=== PATIENT | female | born 1965 | race Caucasian/White ===

== ENCOUNTER 2021-03-06 00:03 | Inpatient (IN) | payer MEDICAID ==
[2021-03-06] VITALS (13 sets, daily range): BP systolic 112–145; BP diastolic 52–74
[~2021-03-06] VITALS: Ht 152.4 cm; Wt 74.8 kg
[2021-03-06 01:01] LABS: BASOPHILS % (AUTO) 0.3 % (0-1); EOSINOPHILS # (AUTO) 0.1 X10'3 (0-0.9); EOSINOPHILS % (AUTO) 0.6 % (0-6); HEMATOCRIT 39.5 % (35.0-45.0); HEMOGLOBIN 13.4 g/dl (12.0-16.0); LYMPHOCYTES # (AUTO) 0.9 X10'3 (1.1-4.8); MEAN CORPUSCULAR HEMOGLOBIN 30.2 PG (27.0-31.0); MEAN CORPUSCULAR HGB CONC 33.8 g/dL (33.0-36.5); MEAN CORPUSCULAR VOLUME 89.5 FL (78-98); MEAN PLATELET VOLUME 11.1 FL (7.4-10.4); MONOCYTES % (AUTO) 6.3 % (2-12); NEUTROPHILS # (AUTO) 13.2 X10'3 (1.8-7.7); NEUTROPHILS % (AUTO) 86.8 % (42-75); PLATELET COUNT 107 X10'3 (140-440); RED BLOOD COUNT 4.41 X10'6 (4.20-5.60); RED CELL DISTRIBUTION WIDTH 16.1 % (11.5-14.5); WHITE BLOOD COUNT 15.2 X10'3 (4.5-11.0)
[2021-03-06 01:05] LABS: ALANINE AMINOTRANSFERASE 91 U/L (12-78); ALBUMIN 2.6 G/DL (3.4-5.0); ALBUMIN/GLOBULIN RATIO 0.7 (1.1-1.5); ALKALINE PHOSPHATASE 118 IU/L (46-116); ANION GAP 8 (8-16); ASPARTATE AMINO TRANSFERASE 270 U/L (10-37); BILIRUBIN,TOTAL 0.5 MG/DL (0.1-1.0); BLOOD UREA NITROGEN 7 MG/DL (7-18); BUN/CREATININE RATIO 8.8 (6.6-38.0); CHLORIDE 101 MMOL/L (99-107); GLUCOSE 102 MG/DL (70-104); POTASSIUM 3.8 MMOL/L (3.5-5.1); SODIUM 137 MMOL/L (135-145); TOTAL PROTEIN 6.3 G/DL (6.4-8.2); eGFR 74 ML/MIN
[2021-03-06] MEDS ORDERED: ALBU2.5V10 PO (01:05)
[2021-03-06] MEDS ORDERED: GABA300C PO (01:05)
[2021-03-06] MEDS ORDERED: OXYC15TA PO (01:05)
[2021-03-06] MEDS ORDERED: LEVO112T5 PO (01:05)
[2021-03-06] MEDS ORDERED: CABO60TA PO (01:05)
[2021-03-06] MEDS ORDERED: ERGO1TAB30 PO (01:05)
[2021-03-06] MEDS ORDERED: FENT1PAT13 TOP (01:05)
[2021-03-06] MEDS ORDERED: LISI10TA27 PO (01:05)
[2021-03-06] MEDS ORDERED: INSU100I31 SQ (01:05)
[2021-03-06] MEDS ORDERED: SENN-263 PO (01:05)
[2021-03-06] MEDS ORDERED: UREA85CR23 TOP (01:05)
[2021-03-06] MEDS ORDERED: BUTA1TAB54 PO (01:05)
[2021-03-06] MEDS ORDERED: CIME800T PO (01:06)
[2021-03-06 01:11] LABS: MAGNESIUM 1.8 MG/DL (1.5-2.4)
[2021-03-06] MEDS ORDERED: nitroGLYCERIN 0.4mg SUBLingual tab SL PRN (01:15)
--- NOTE | 2021-03-06 01:16 | NUR ---
Pt port to r chest was accessed at [facility] and no working properly. Deaccessed and new one placed. Now flushing and drawning well. Lab calling to updated that the trop drawn here is over 90.0, critically high, and he is further running the sample to get the exact number. Dr. Bear updated. orderinig 2nd ekg and one nitro tab.
--- NOTE | 2021-03-06 01:35 | NUR ---
Critically high troponin 107.23, Dr. Barker aware.
--- NOTE | 2021-03-06 02:07 | NUR ---
Per Dr. Bear, Pt is agreeable to going to mill laborer and Dr. Santiago will take Pt to cath lab tech at 0630 this am and requests that Pt be prepped and ready to go at this time. silk screen frame assembler, Elsa , and Pt updated of this.
--- NOTE | 2021-03-06 02:28 | NUR ---
Dr. Morales at bedside for admission. Pt with stable vs .
[2021-03-06] MEDS ORDERED: potassium Cl 40MEQ/1/2NS 520ml 520 ML IV PRN ×2 (03:00)
[2021-03-06] MEDS ORDERED: potassium Cl 20 mEq SR tablet PO PRN ×2 (03:00)
[2021-03-06] MEDS ORDERED: ondansetron/PF 4mg/2ml inj IV PRN (03:00)
[2021-03-06] MEDS ORDERED: dextrose ORAL solution 15 GM/59 ML bottle PO PRN ×2 (03:10)
[2021-03-06] MEDS ORDERED: insulin Lispro (HumaLOG) vial - multi-dose SQ SCH (03:10)
[2021-03-06] MEDS ORDERED: glucagon, human recombinant 1mg kit SUBCUT PRN (03:10)
[2021-03-06] MEDS ORDERED: dextrose 50%-water 50ml dispensing syringe IV PRN ×2 (03:10)
[2021-03-06] MEDS ORDERED: MESSAGE TO PHARMACY PO ONE (03:10)
[2021-03-06] MEDS ORDERED: butalbital/acetaminophen/caffeine (Fioricet) tablet PO PRN (03:10)
[2021-03-06] MEDS: famotidine 20mg tablet PO SCH ×2 (03:20→20:55)
[2021-03-06] MEDS ORDERED: UREA TP PRN (03:25)
[2021-03-06] MEDS ORDERED: oxyCODONE IR 5mg (immed. release) tablet PO PRN (03:25)
[2021-03-06] MEDS: normal saline 1000ml 1,000 ML IV SCH ×2 (03:32→16:40)
[2021-03-06 03:34] LABS: HEMOGLOBIN A1C 6.4 % (4.5-6.2)
--- NOTE | 2021-03-06 04:05 | NUR ---
dr. maosn calling for update. pts last troponin is still pending, per quality control lab technician, Trent, will be around 100.0 again. Pt denies any current cp and is with stable vs and nsr on monitor. Dr. Mason request to call blood bank laboratory technician now and he will take her shortly to blood bank laboratory technician.
[2021-03-06 04:18] LABS: TROPONIN I 85.35 NG/ML (0.0-0.05)
[2021-03-06] MEDS ORDERED: verapamil 2.5 mg/ml inj IV ONE (04:28)
[2021-03-06] MEDS ORDERED: nitroGLYCERIN-Tridil 50MG/D5W 250 ML IV ONE (04:28)
[2021-03-06] MEDS ORDERED: LIDOcaine 1% (10mg/ml)w/preservative injection 20ml MDV ONE (04:29)
[2021-03-06] MEDS ORDERED: heparin 1,000unit/ml 10ml vial 10 ML ONE (04:29)
[2021-03-06] MEDS ORDERED: midazolam 1 mg/ML 2ml injection ONE (04:29)
[2021-03-06] MEDS ORDERED: iohexol 350MG/ML 100ml bottle IV ONE ×2 (04:29→05:13)
[2021-03-06] MEDS ORDERED: iohexol 350 MG/ML 50ML vial IV ONE (04:29)
[2021-03-06] MEDS ORDERED: fentaNYL/PF 50MCG/1 ML 2ML syringe ONE (04:29)
--- NOTE | 2021-03-06 04:29 | NUR ---
dr mason at bedside now.
--- NOTE | 2021-03-06 04:31 | NUR ---
dr. abreu updated that Pt to go to [facility] and trop now [address] Santiago at beside now.
--- NOTE | 2021-03-06 04:41 | NUR ---
to laborer plumbing
[2021-03-06] MEDS ORDERED: heparin 25,000 UNIT/250ml bag 250 ML IV ONE (05:28)
[2021-03-06 05:31] LABS: PARTIAL THROMBOPLASTIN TIME 74 SECONDS (22-32)
[2021-03-06] MEDS ORDERED: ticagrelor 90mg tablet ONE (06:23)
--- NOTE | 2021-03-06 06:35 | NUR ---
Received patient report from JOSELIN Carbajal. Awaiting patient arrival to room 3009.
--- NOTE | 2021-03-06 06:40 | NUR ---
Patient arrived to room 3009 via gurney. Patient used slideboard to get on hospital bed, and patient to lay flat for 6 hours. Right groin site CDI and no hematoma. Patient on heparin gtt and NS. Post-op vitals hooked up and vitals stable.
--- NOTE | 2021-03-06 07:21 | NUR ---
Orders for post-cath put in per Dr. Santiago and medications faxed down to pharmacy.
[2021-03-06] MEDS ORDERED: acetaminophen 325mg tablet PO PRN ×2 (07:30)
[2021-03-06 07:42] LABS: CHOL/HDL RATIO 3.5 (0.00-4.99); CHOLESTEROL 195 MG/DL (0-200); HDL CHOLESTEROL 55 MG/DL (35-60); LDL CHOLESTEROL 126 MG/DL (50-100); TRIGLYCERIDES 86 MG/DL (20-135)
[2021-03-06] MEDS: K and/or MAG REPLACEMENT MC SCH ×2 (08:00→20:00)
[2021-03-06] MEDS: lisinopril 10 MG tablet PO SCH (08:00)
[2021-03-06] MEDS ORDERED: lisinopril 10 MG tablet PO SCH (08:00)
[2021-03-06] MEDS: sodium bicarbonate (8.4%) inj. 75 MEQ in sodium chloride 0.45% 500ml 500 ML IV SCH ×3 (09:35→23:19)
[2021-03-06] MEDS: aspirin 81mg tab.chew PO SCH (09:37)
[2021-03-06] MEDS: sennosides 8.6mg tablet PO SCH ×2 (09:40→21:03)
[2021-03-06] MEDS: atorvastatin 20mg tablet PO SCH (09:41)
[2021-03-06] MEDS: levoTHYROXINE 112mcg tablet PO SCH (09:41)
[2021-03-06] MEDS: gabapentin 300mg capsule PO SCH (09:41)
[2021-03-06] MEDS: acetylcysteine 200 MG/ml 4ml vial PO SCH ×2 (09:42→20:00)
--- NOTE | 2021-03-06 11:37 | NUR ---
Order for heart healthy carb controlled diet entered per Dr. Santiago.
--- NOTE | 2021-03-06 17:55 | NUR ---
Orientee documentation: I have reviewed and agree with all interventions, assessments performed and documented by JOSELIN Vasquez.
--- NOTE | 2021-03-06 17:55 | NUR ---
[place] Medication Administration: For this medication-pass time frame, all medication were reviewed, dispensed, administered and documented per hospital policy by JOSELIN Vasquez.
--- NOTE | 2021-03-06 18:15 | NUR ---
Problems reprioritized. Patient report given, questions answered & plan of care reviewed with Jenn OLIVERA.
--- NOTE | 2021-03-06 18:15 | NUR ---
Problems reprioritized. Patient report given, questions answered & plan of care reviewed with JOSELIN Barajas. Patient stable at transfer of care.
--- NOTE | 2021-03-06 18:30 | NUR ---
Patient in room PCU 3009. I have received report from JOSELIN Maria and had the opportunity to ask questions and assume patient care.
[2021-03-07 02:00] VITALS: BP 113/63
[2021-03-07] MEDS: sodium bicarbonate (8.4%) inj. 75 MEQ in sodium chloride 0.45% 500ml 500 ML IV SCH (04:15)
[2021-03-07] MEDS: normal saline 1000ml 1,000 ML IV SCH (04:19)
--- NOTE | 2021-03-07 06:25 | NUR ---
Problems reprioritized. Patient report given, questions answered & plan of care reviewed with JOSELIN Patino.
[2021-03-07 07:00] VITALS: BP 121/59
[2021-03-07 07:50] LABS: BASOPHILS % (AUTO) 0.3 % (0-1); EOSINOPHILS # (AUTO) 0.2 X10'3 (0-0.9); HEMATOCRIT 36.1 % (35.0-45.0); HEMOGLOBIN 12.3 g/dl (12.0-16.0); LYMPHOCYTES # (AUTO) 0.7 X10'3 (1.1-4.8); LYMPHOCYTES % (AUTO) 7.1 % (21-51); MEAN CORPUSCULAR HEMOGLOBIN 30.3 PG (27.0-31.0); MEAN CORPUSCULAR HGB CONC 34.1 g/dL (33.0-36.5); MEAN CORPUSCULAR VOLUME 88.8 FL (78-98); MEAN PLATELET VOLUME 11.1 FL (7.4-10.4); MONOCYTES # (AUTO) 0.5 X10'3 (0-0.9); MONOCYTES % (AUTO) 5.3 % (2-12); NEUTROPHILS # (AUTO) 8.5 X10'3 (1.8-7.7); NEUTROPHILS % (AUTO) 85.3 % (42-75); PLATELET COUNT 108 X10'3 (140-440); RED BLOOD COUNT 4.07 X10'6 (4.20-5.60); RED CELL DISTRIBUTION WIDTH 15.8 % (11.5-14.5)
[2021-03-07] MEDS: K and/or MAG REPLACEMENT MC SCH (08:00)
[2021-03-07] MEDS ORDERED: ticagrelor 90mg tablet PO SCH (08:00)
[2021-03-07] MEDS ORDERED: metoprolol succinate 25mg (24-HOUR) SR. Tablet PO SCH (08:00)
[2021-03-07 08:12] LABS: ALANINE AMINOTRANSFERASE 94 U/L (12-78); ALBUMIN/GLOBULIN RATIO 0.6 (1.1-1.5); ALKALINE PHOSPHATASE 112 IU/L (46-116); ANION GAP 8 (8-16); ASPARTATE AMINO TRANSFERASE 133 U/L (10-37); BILIRUBIN,TOTAL 0.5 MG/DL (0.1-1.0); BLOOD UREA NITROGEN 8 MG/DL (7-18); BUN/CREATININE RATIO 11.1 (6.6-38.0); CALCIUM 7.6 MG/DL (8.5-10.1); CHLORIDE 106 MMOL/L (99-107); CHOL/HDL RATIO 4.4 (0.00-4.99); CHOLESTEROL 150 MG/DL (0-200); CREATININE 0.72 MG/DL (0.40-0.90); GLUCOSE 79 MG/DL (70-104); HDL CHOLESTEROL 34 MG/DL (35-60); LDL CHOLESTEROL 92 MG/DL (50-100); POTASSIUM 3.8 MMOL/L (3.5-5.1); SODIUM 141 MMOL/L (135-145); TOTAL PROTEIN 5.1 G/DL (6.4-8.2); TRIGLYCERIDES 120 MG/DL (20-135); eGFR 83 ML/MIN
[2021-03-07] MEDS: sennosides 8.6mg tablet PO SCH (08:50)
[2021-03-07] MEDS: gabapentin 300mg capsule PO SCH (08:50)
[2021-03-07] MEDS: aspirin 81mg tab.chew PO SCH (08:50)
[2021-03-07] MEDS: atorvastatin 20mg tablet PO SCH (08:51)
[2021-03-07 08:52] VITALS: BP_SYST 121
[2021-03-07] MEDS: acetylcysteine 200 MG/ml 4ml vial PO SCH (08:52)
[2021-03-07] MEDS: lisinopril 10 MG tablet PO SCH (08:52)
[2021-03-07] MEDS: levoTHYROXINE 112mcg tablet PO SCH (08:52)
[2021-03-07] MEDS ORDERED: fentaNYL 100MCG/hour patch.TD72 TD SCH (09:00)
--- NOTE | 2021-03-07 09:06 | NUR ---
Paged Cardiology COCKTAIL SERVER Vandana Brown: Per Dr Llamas, pt may d/c if you clear her. PT would like to leave [facility] (97 if possible) as she must drive to [place]. Dr. Llamas will need you to put in the cardiac meds for d/c. Thank you!
[2021-03-07] MEDS ORDERED: ATOR20TA66 PO (09:23)
[2021-03-07] MEDS ORDERED: TICA90TA PO (09:23)
[2021-03-07] MEDS ORDERED: NITR0.4T51 SL (09:23)
[2021-03-07] MEDS ORDERED: METO-395 PO (09:23)
[2021-03-07] MEDS ORDERED: ASPI81TA53 PO (09:23)
[2021-03-07 09:31] LABS: LARGE PLATELETS FEW; PLATELET ESTIMATE DECREASED
[2021-03-07 09:32] LABS: ANISOCYTOSIS 1+
--- NOTE | 2021-03-07 11:27 | NUR ---
Patient stable for discharge per MD orders. All belongings collected and sent with patient. PIV discontinue intact, residential monitor removed and returned to telemetry office. All instructions reviewed with patient, who was given the opportunity to ask questions. All questions answered, patient expressed understanding of instructions. Patient assisted into wheelchair and wheeled to front of building, where she and her belongings were deposited into a private vehicle. Patient departed with driving.
[2021-03-08] MEDS ORDERED: albuterol 2.5 MG/3 ML nebule ONE (14:16)
== END 2021-03-07 10:37 | disposition home or self-care (01) | DRG 174 ==
LOC: ER 00:05 → ED HOLD 03:00 → PCU 3S 06:50
PROVIDERS: ADMIT Internal Medicine; ATTEND Internal Medicine
PROC: 4A023N7 Measurement of Cardiac Sampling and Pressure, Left Heart, Percutaneous Approach (ICD-10-PCS; principal; 2021-03-06)
PROC: 027135Z Dilation of Coronary Artery, Two Arteries with Two Drug-eluting Intraluminal Devices, Percutaneous Approach (ICD-10-PCS; 2021-03-06)
PROC: B2111ZZ Fluoroscopy of Multiple Coronary Arteries using Low Osmolar Contrast (ICD-10-PCS; 2021-03-06)
PROC: B2151ZZ Fluoroscopy of Left Heart using Low Osmolar Contrast (ICD-10-PCS; 2021-03-06)
PROC: B54BZZA Ultrasonography of Right Lower Extremity Veins, Guidance (ICD-10-PCS; 2021-03-06)
DX: I21.4 Non-ST elevation (NSTEMI) myocardial infarction (principal); D69.3 Immune thrombocytopenic purpura; C79.51 Secondary malignant neoplasm of bone; C64.9 Malignant neoplasm of unspecified kidney, except renal pelvis; E11.9 Type 2 diabetes mellitus without complications; E03.9 Hypothyroidism, unspecified; E78.5 Hyperlipidemia, unspecified; F17.210 Nicotine dependence, cigarettes, uncomplicated; G89.29 Other chronic pain; I10 Essential (primary) hypertension; I25.10 Atherosclerotic heart disease of native coronary artery without angina pectoris; J44.9 Chronic obstructive pulmonary disease, unspecified; Z79.899 Other long term (current) drug therapy; Z80.0 Family history of malignant neoplasm of digestive organs; Z82.49 Family history of ischemic heart disease and other diseases of the circulatory system; Z85.528 Personal history of other malignant neoplasm of kidney; Z86.2 Personal history of diseases of the blood and blood-forming organs and certain disorders involving the immune mechanism; Z90.5 Acquired absence of kidney; Z92.21 Personal history of antineoplastic chemotherapy; Z98.61 Coronary angioplasty status
CPT/HCPCS: 36415; 76937; 80053; 80061; 82948; 83036; 83735; 83880; 84484; 85008; 85025; 85347; 85610; 85730; 87081; 93005; 93306; 93458; 96374; 99152; 99153; 99285; A4314; A5120; C1725; C1751; C1760; C1769; C1874; C1892; C1894; C9600; C9601; G0378; J1644; J1815; J2001; J2250; J3010; J3490; J7030; Q9967

== ENCOUNTER 2021-03-08 11:40 | Inpatient (IN) | payer MEDICAID ==
[~2021-03-08] VITALS: Ht 154.9 cm; Wt 81.8 kg
[~2021-03-08 11:40] MED LIST: ALBU2.5V10 PO; ASPI81TA53 PO; ATOR20TA66 PO; BUTA1TAB54 PO; CABO60TA PO; CIME800T PO; ERGO1TAB30 PO; FENT1PAT13 TOP; GABA300C PO; INSU100I31 SQ; LEVO112T5 PO; LISI10TA27 PO; METO-395 PO; NITR0.4T51 SL; NORepinephrine 1 mg/ml inj IV ONE; OXYC15TA PO; SENN-263 PO; TICA90TA PO; UREA85CR23 TOP; etomidate 2mg/ml inj. ONE; heparin 10,000 units/1 ML INJ ONE; heparin, porcine-25,000 units/D5-250ml premix IV ONE; rocuronium 10mg/ml inj IV ONE; sod chloride 0.9% 10ml flush syringe IV ONE
--- NOTE | 2021-03-08 11:55 | NUR ---
Fentanyl patch removed from right shoulder.
[2021-03-08 12:14] LABS: ABG BASE EXCESS -18.7 mmol/L (-2.0-2.0); ABG OXYGEN SATURATION 79.6 % (94-97); ABG PCO2 (T) 63.6 mmHg (32.0-45.0); ABG PO2 (T) 63.9 mmHg (75.0-100.0); ALLEN'S TEST POSITIVE; FCOHb 2.9 % (0.0-3.9); FMetHb 0.1 % (0.0-1.5); FO2Hb 77.2 % (94-97); PEEP 8 cm H2O; RESPIRATORY RATE 20 b/min; TIDAL VOLUME 400 mL; TOTAL HEMOGLOBIN 15.2 G/dl (12.0-16.0)
[2021-03-08] MEDS ORDERED: FENTANYL-0.9 % NACL/PF 100 ML IV PRN (12:15)
[2021-03-08] MEDS ORDERED: midazolam 100mg in NS 100ml 100 ML IV PRN (12:15)
--- NOTE | 2021-03-08 12:15 | NUR ---
Updated significant other Johnathan on current plan of care and treatment. Dr. Matson in room as well to give needed updates and current information. Johnathan aware that patient was intubated and regarding all procedures performed including tubes and lines placed. Johnathan did state that patient has a port over the right chest wall, that is accessible and has been accessed recently for chemotherapy. Verified current history on patient and history is consistent with medical history from 2 days ago.
[2021-03-08 12:27] LABS: EOSINOPHILS # (AUTO) 0.2 X10'3 (0-0.9); RED CELL DISTRIBUTION WIDTH 16.4 % (11.5-14.5); WHITE BLOOD COUNT 14.5 X10'3 (4.5-11.0)
[2021-03-08 12:28] LABS: BASOPHILS % (AUTO) 0.3 % (0-1); EOSINOPHILS % (AUTO) 1.3 % (0-6); HEMATOCRIT 45.5 % (35.0-45.0); HEMOGLOBIN 14.9 g/dl (12.0-16.0); LYMPHOCYTES # (AUTO) 3.7 X10'3 (1.1-4.8); LYMPHOCYTES % (AUTO) 25.6 % (21-51); MEAN CORPUSCULAR HEMOGLOBIN 30.3 PG (27.0-31.0); MEAN CORPUSCULAR HGB CONC 32.7 g/dL (33.0-36.5); MEAN CORPUSCULAR VOLUME 92.6 FL (78-98); MEAN PLATELET VOLUME 11.3 FL (7.4-10.4); MONOCYTES # (AUTO) 0.7 X10'3 (0-0.9); NEUTROPHILS # (AUTO) 9.8 X10'3 (1.8-7.7); NEUTROPHILS % (AUTO) 67.8 % (42-75); PLATELET COUNT 163 X10'3 (140-440); RED BLOOD COUNT 4.91 X10'6 (4.20-5.60)
--- NOTE | 2021-03-08 12:34 | NUR ---
Updated johnathan on Dr. palma request for Johnathan to remain in ER room 17 til central line is placed. He notified me that he forgot to tell us that patient took a nitro SL due to chest pain after eating. Dr. Matson aware of updated information.
[2021-03-08 12:38] LABS: ALANINE AMINOTRANSFERASE 180 U/L (12-78); ALBUMIN 1.6 G/DL (3.4-5.0); ALBUMIN/GLOBULIN RATIO 0.5 (1.1-1.5); ALKALINE PHOSPHATASE 177 IU/L (46-116); ANION GAP 14 (8-16); BILIRUBIN,TOTAL 0.5 MG/DL (0.1-1.0); BLOOD UREA NITROGEN 8 MG/DL (7-18); BUN/CREATININE RATIO 7.1 (6.6-38.0); CALCIUM 7.2 MG/DL (8.5-10.1); CHLORIDE 105 MMOL/L (99-107); CREATININE 1.12 MG/DL (0.40-0.90); GLUCOSE 250 MG/DL (70-104); SODIUM 137 MMOL/L (135-145); TOTAL CARBON DIOXIDE 17.6 MMOL/L (24-32); TOTAL PROTEIN 4.6 G/DL (6.4-8.2); eGFR 50 ML/MIN
[2021-03-08 12:39] LABS: ASPARTATE AMINO TRANSFERASE 186 U/L (10-37); POTASSIUM 3.4 MMOL/L (3.5-5.1)
[2021-03-08 12:56] LABS: PLATELET ESTIMATE NORMAL; TOTAL CELLS COUNTED 100
[2021-03-08 12:57] LABS: ANISOCYTOSIS 1+; LARGE PLATELETS FEW
--- NOTE | 2021-03-08 13:06 | NUR ---
Genesis sharma. new order for solu-cortif 20mg received Addendum: 03/08/21 at 1353 by CHE solu cortif order s/b 250mg not 20
[2021-03-08] MEDS ORDERED: heparin 10,000 units/1 ML INJ IV ONE ×2 (13:20)
[2021-03-08] MEDS ORDERED: aspirin 81mg tab.chew PO ONE (13:20)
[2021-03-08] MEDS ORDERED: heparin 25,000 UNIT/250ml bag 250 ML IV SCH ×2 (13:20)
[2021-03-08] MEDS ORDERED: heparin 10,000 units/1 ML INJ IV PRN ×2 (13:20)
[2021-03-08] MEDS ORDERED: hydrocortisone sod succ/PF 100mg/2ml inj. IV SCH (13:25)
[2021-03-08] MEDS ORDERED: midazolam 1 mg/ML 2ml injection ONE (13:29)
[2021-03-08] MEDS ORDERED: iohexol 350 MG/1 ML 200ml bottle ONE (13:29)
[2021-03-08] MEDS ORDERED: fentaNYL/PF 50MCG/1 ML 2ML syringe ONE (13:29)
[2021-03-08] MEDS ORDERED: LIDOcaine 1% (10mg/ml)w/preservative injection 20ml MDV ONE (13:29)
[2021-03-08] MEDS ORDERED: nitroGLYCERIN-Tridil 50MG/D5W 250 ML IV ONE (13:29)
[2021-03-08] MEDS ORDERED: iohexol 350 MG/ML 50ML vial IV ONE (13:29)
[2021-03-08] MEDS ORDERED: heparin 1,000unit/ml 10ml vial 10 ML ONE (13:29)
[2021-03-08 13:40] LABS: PARTIAL THROMBOPLASTIN TIME 43 SECONDS (22-32)
[2021-03-08 13:43] VITALS: BP 101/64
[2021-03-08] MEDS ORDERED: magnesium 1 GM/2 ML inj ONE (13:48)
[2021-03-08] MEDS ORDERED: albuterol 2.5 MG/3 ML nebule ONE (14:07)
[2021-03-08] MEDS ORDERED: DOBUTamine-DoBUTrex 500mg/D5W 250 ML IV ONE (14:49)
[2021-03-08] MEDS ORDERED: heparin 1,000 units/ml 10ml inj HE ONE ×2 (15:20)
[2021-03-08] MEDS ORDERED: albuterol 2.5 MG/3 ML nebule CONTNEB PRN (17:25)
== END 2021-03-08 18:00 | disposition expired | DRG 190 ==
LOC: ER 11:40 → ICU 2S 16:20
PROVIDERS: ADMIT Family Medicine; ATTEND Family Medicine
PROC: 4A023N8 Measurement of Cardiac Sampling and Pressure, Bilateral, Percutaneous Approach (ICD-10-PCS; principal; 2021-03-08)
PROC: 5A1935Z Respiratory Ventilation, Less than 24 Consecutive Hours (ICD-10-PCS; 2021-03-08)
PROC: 5A12012 Performance of Cardiac Output, Single, Manual (ICD-10-PCS; 2021-03-08)
PROC: B2111ZZ Fluoroscopy of Multiple Coronary Arteries using Low Osmolar Contrast (ICD-10-PCS; 2021-03-08)
PROC: 5A2204Z Restoration of Cardiac Rhythm, Single (ICD-10-PCS; 2021-03-08)
PROC: 0BH17EZ Insertion of Endotracheal Airway into Trachea, Via Natural or Artificial Opening (ICD-10-PCS; 2021-03-08)
PROC: 02HV33Z Insertion of Infusion Device into Superior Vena Cava, Percutaneous Approach (ICD-10-PCS; 2021-03-08)
DX: I21.19 ST elevation (STEMI) myocardial infarction involving other coronary artery of inferior wall (principal); R57.0 Cardiogenic shock; I49.01 Ventricular fibrillation; J80 Acute respiratory distress syndrome; J44.9 Chronic obstructive pulmonary disease, unspecified; S27.329A Contusion of lung, unspecified, initial encounter; E11.9 Type 2 diabetes mellitus without complications; F17.200 Nicotine dependence, unspecified, uncomplicated; I10 Essential (primary) hypertension; E78.5 Hyperlipidemia, unspecified; I25.111 Atherosclerotic heart disease of native coronary artery with angina pectoris with documented spasm; R04.89 Hemorrhage from other sites in respiratory passages; T88.4XXA Failed or difficult intubation, initial encounter; Z79.82 Long term (current) use of aspirin; Z80.0 Family history of malignant neoplasm of digestive organs; I25.2 Old myocardial infarction; Z82.49 Family history of ischemic heart disease and other diseases of the circulatory system; Z86.2 Personal history of diseases of the blood and blood-forming organs and certain disorders involving the immune mechanism; Z88.6 Allergy status to analgesic agent; Z85.528 Personal history of other malignant neoplasm of kidney; X58.XXXA Exposure to other specified factors, initial encounter; Y93.89 Activity, other specified; Y92.230 Patient room in hospital as the place of occurrence of the external cause; Y99.8 Other external cause status
CPT/HCPCS: 31500; 36415; 36556; 36600; 71045; 76937; 80053; 82803; 82948; 83880; 84484; 85007; 85018; 85025; 85347; 85610; 85730; 92950; 93005; 93460; 94002; 94760; 94799; 99285; A6258; C1751; C1769; C1894; C9606; G0378; J1250; J1644; J1720; J2001; J2250; J3010; J3475; J3490; J7040; Q9967